=== PATIENT | female | born 1930 | race Two or more races ===

== ENCOUNTER 2017-10-01 20:10 | Inpatient (IN) | payer MEDICARE, MEDICAID ==
[2017-10-02] MEDS ORDERED: ACETAMINOPHEN 650 MG SUPP PR (00:30)
[2017-10-02] MEDS ORDERED: BISACODYL 10 MG SUPP PR (01:00)
[2017-10-02] MEDS ORDERED: NITROGLYCERIN (SL) 0.4 MG TAB SL (01:00)
[2017-10-02] MEDS ORDERED: DIPHENHYDRAMINE 50 MG INJ IV ×2 (01:00→07:00)
[2017-10-02] MEDS ORDERED: ALBUTEROL 0.5% (NEB) 2.5 MG/0.5 ML AMP INH (01:00)
[2017-10-02] MEDS ORDERED: IPRATROPIUM (NEB) 0.5 MG/2.5 ML AMP INH (01:00)
[2017-10-02] MEDS ORDERED: ONDANSETRON 4 MG INJ IV (01:00)
[2017-10-02 01:15] LABS: ADD UMIC YES; UR ASCORBIC ACID NEGATIVE (NEGATIVE); UR BILIRUBIN (Dip) NEGATIVE (NEGATIVE); UR BLOOD (Dip) NEGATIVE (NEGATIVE); UR CLARITY CLEAR (CLEAR); UR COLOR STRAW (YELLOW); UR GLUCOSE (Dip) NEGATIVE (NEGATIVE); UR KETONES (Dip) NEGATIVE (NEGATIVE); UR LEUKOCYTE ESTERASE (Dip) NEGATIVE Leu/ul (NEGATIVE); UR NITRITE (Dip) NEGATIVE (NEGATIVE); UR RBC 0 /HPF (0-5); UR TOTAL PROTEIN (Dip) 2+ mg/dl (NEGATIVE); UR UROBILINOGEN (Dip) NEGATIVE (NEGATIVE); UR WBC 2 /HPF (0-5)
[2017-10-02] MEDS ORDERED: MAGNESIUM SULFATE 2 GM/50 ML 50 ML IVPB (03:00)
[2017-10-02] MEDS ORDERED: MAGNESIUM SULFATE 4 GM/100 ML 100 ML IVPB (03:00)
[2017-10-02] MEDS: PANTOPRAZOLE (EC) 40 MG TAB PO (06:19)
[2017-10-02 08:17] LABS: ADD MAN DIFF? NO
[2017-10-02 08:23] LABS: WHITE BLOOD COUNT 7.2 10^3/ul (4.8-10.8)
[2017-10-02 08:23] LABS: BASOPHILS % 0.4 % (0.0-2.0); EOSINOPHILS # 0.3 10^3/ul (0.0-0.5); EOSINOPHILS % 3.6 % (0.0-7.0); HEMATOCRIT 31.2 % (37.0-47.0); HEMOGLOBIN 9.8 g/dl (12.0-16.0); LYMPHOCYTES # 1.7 10^3/ul (0.8-2.9); LYMPHOCYTES % 23.2 % (15.0-51.0); MEAN CORPUSCULAR HEMOGLOBIN 30.7 pg (29.0-33.0); MEAN CORPUSCULAR HGB CONC 31.4 g/dl (32.0-37.0); MEAN CORPUSCULAR VOLUME 97.8 fl (82.0-101.0); MEAN PLATELET VOLUME 9.4 fl (7.4-10.4); MONOCYTE # 0.6 10^3/ul (0.3-0.9); MONOCYTES % 8.8 % (0.0-11.0); NEUTROPHIL # 4.6 10^3/ul (1.6-7.5); NEUTROPHILS % 63.6 % (39.0-77.0); PLATELET COUNT 267 10^3/UL (140-415); RED BLOOD COUNT 3.19 10^6/ul (4.20-5.40); RED CELL DISTRIBUTION WIDTH 13.8 % (11.5-14.5)
[2017-10-02 08:42] LABS: INR 1.91; PROTIME 22.3 Sec (11.9-14.9); PT RATIO 1.7
[2017-10-02] MEDS ORDERED: FUROSEMIDE 40 MG TAB PO (09:00)
[2017-10-02] MEDS ORDERED: METOLAZONE 5 MG TAB PO (09:00)
[2017-10-02] MEDS ORDERED: COLCHICINE 0.6 MG TAB PO (09:00)
[2017-10-02 09:02] LABS: ALANINE AMINOTRANSFERASE 22 IU/L (13-69); ALBUMIN/GLOBULIN RATIO 1.17; ALKALINE PHOSPHATASE 62 IU/L (42-121); ANION GAP 19 (8-16); ASPARTATE AMINO TRANSFERASE 18 IU/L (15-46); BILIRUBIN,INDIRECT 0.1 mg/dl (0-1.1); BILIRUBIN,TOTAL 0.1 mg/dl (0.2-1.3); BLOOD UREA NITROGEN 110 mg/dl (7-20); CALCIUM 8.2 mg/dl (8.4-10.2); CARBON DIOXIDE 28 mmol/L (21-31); CHLORIDE 102 mmol/L (97-110); CREATININE 2.79 mg/dl (0.44-1.00); GLUCOSE 90 mg/dl (70-220); POTASSIUM 3.7 mmol/L (3.5-5.1); SODIUM 145 mmol/L (135-144); TOTAL PROTEIN 7.4 g/dl (6.1-8.1)
[2017-10-02] MEDS ORDERED: HYDROCORTISONE 1% 28 GM CR TOP (11:30)
[2017-10-02] MEDS ORDERED: DIPHENHYDRAMINE 25 MG CAP PO (11:30)
[2017-10-02] MEDS: DOCUSATE SODIUM 100 MG CAP PO ×2 (12:01→21:28)
[2017-10-02] MEDS: FERROUS GLUCONATE (EC) 325 MG TAB PO (12:01)
[2017-10-02] MEDS: COLCHICINE 0.6 MG TAB PO (12:02)
[2017-10-02] MEDS: NIFEdipine (XL) 30 MG TAB PO (12:04)
[2017-10-02] MEDS: FUROSEMIDE 40 MG TAB PO (12:11)
[2017-10-02] MEDS: DOXAZOSIN 2 MG TAB PO (21:00)
[2017-10-03 05:46] LABS: ADD UMIC YES; UR ASCORBIC ACID NEGATIVE (NEGATIVE); UR BILIRUBIN (Dip) NEGATIVE (NEGATIVE); UR BLOOD (Dip) 1+ mg/dL (NEGATIVE); UR CLARITY CLEAR (CLEAR); UR COLOR STRAW (YELLOW); UR GLUCOSE (Dip) NEGATIVE (NEGATIVE); UR KETONES (Dip) NEGATIVE (NEGATIVE); UR LEUKOCYTE ESTERASE (Dip) NEGATIVE Leu/ul (NEGATIVE); UR NITRITE (Dip) NEGATIVE (NEGATIVE); UR RBC 0 /HPF (0-5); UR TOTAL PROTEIN (Dip) 2+ mg/dl (NEGATIVE); UR UROBILINOGEN (Dip) NEGATIVE (NEGATIVE); UR WBC 1 /HPF (0-5)
[2017-10-03 06:07] LABS: CREATININE,URINE RANDOM 46.49 mg/dl (20-320)
[2017-10-03 06:07] LABS: SODIUM,URINE RANDOM 72 mmol/L (30-90)
[2017-10-03 06:47] LABS: ADD MAN DIFF? NO
[2017-10-03 06:55] LABS: WHITE BLOOD COUNT 7.8 10^3/ul (4.8-10.8)
[2017-10-03 06:55] LABS: BASOPHILS % 0.5 % (0.0-2.0); EOSINOPHILS # 0.3 10^3/ul (0.0-0.5); EOSINOPHILS % 4.1 % (0.0-7.0); HEMATOCRIT 29.5 % (37.0-47.0); HEMOGLOBIN 9.5 g/dl (12.0-16.0); LYMPHOCYTES # 1.7 10^3/ul (0.8-2.9); LYMPHOCYTES % 21.2 % (15.0-51.0); MEAN CORPUSCULAR HEMOGLOBIN 30.9 pg (29.0-33.0); MEAN CORPUSCULAR HGB CONC 32.2 g/dl (32.0-37.0); MEAN CORPUSCULAR VOLUME 96.1 fl (82.0-101.0); MEAN PLATELET VOLUME 9.2 fl (7.4-10.4); MONOCYTE # 0.7 10^3/ul (0.3-0.9); MONOCYTES % 9.1 % (0.0-11.0); NEUTROPHIL # 5.1 10^3/ul (1.6-7.5); NEUTROPHILS % 64.8 % (39.0-77.0); PLATELET COUNT 239 10^3/UL (140-415); RED BLOOD COUNT 3.07 10^6/ul (4.20-5.40); RED CELL DISTRIBUTION WIDTH 13.9 % (11.5-14.5)
[2017-10-03] MEDS: PANTOPRAZOLE (EC) 40 MG TAB PO (06:57)
[2017-10-03 07:17] LABS: ANION GAP 15 (8-16); BLOOD UREA NITROGEN 117 mg/dl (7-20); CALCIUM 7.9 mg/dl (8.4-10.2); CARBON DIOXIDE 27 mmol/L (21-31); CHLORIDE 103 mmol/L (97-110); CREATININE 2.73 mg/dl (0.44-1.00); GLUCOSE 92 mg/dl (70-220); MAGNESIUM 2.2 mg/dl (1.7-2.5); PHOSPHORUS 6.2 mg/dl (2.5-4.9); POTASSIUM 3.9 mmol/L (3.5-5.1); SODIUM 141 mmol/L (135-144)
[2017-10-03 07:24] LABS: INR 2.14; PROTIME 24.4 Sec (11.9-14.9); PT RATIO 1.9
[2017-10-03] MEDS: DOCUSATE SODIUM 100 MG CAP PO ×2 (09:00→20:31)
[2017-10-03] MEDS: NIFEdipine (XL) 30 MG TAB PO (09:01)
[2017-10-03] MEDS: COLCHICINE 0.6 MG TAB PO (09:01)
[2017-10-03] MEDS: FERROUS GLUCONATE (EC) 325 MG TAB PO (09:01)
[2017-10-03] MEDS: WARFARIN 2 MG TAB PO (18:07)
[2017-10-03] MEDS: DOXAZOSIN 2 MG TAB PO (20:31)
[2017-10-04] MEDS: PANTOPRAZOLE (EC) 40 MG TAB PO (06:23)
[2017-10-04 06:34] LABS: ADD MAN DIFF? NO
[2017-10-04 06:36] LABS: BASOPHILS % 0.4 % (0.0-2.0); EOSINOPHILS # 0.2 10^3/ul (0.0-0.5); EOSINOPHILS % 3.5 % (0.0-7.0); HEMATOCRIT 30.1 % (37.0-47.0); HEMOGLOBIN 9.8 g/dl (12.0-16.0); LYMPHOCYTES # 1.4 10^3/ul (0.8-2.9); LYMPHOCYTES % 20.4 % (15.0-51.0); MEAN CORPUSCULAR HEMOGLOBIN 31.3 pg (29.0-33.0); MEAN CORPUSCULAR HGB CONC 32.6 g/dl (32.0-37.0); MEAN CORPUSCULAR VOLUME 96.2 fl (82.0-101.0); MEAN PLATELET VOLUME 8.9 fl (7.4-10.4); MONOCYTE # 0.7 10^3/ul (0.3-0.9); MONOCYTES % 9.6 % (0.0-11.0); NEUTROPHIL # 4.4 10^3/ul (1.6-7.5); NEUTROPHILS % 65.7 % (39.0-77.0); PLATELET COUNT 233 10^3/UL (140-415); RED BLOOD COUNT 3.13 10^6/ul (4.20-5.40); RED CELL DISTRIBUTION WIDTH 13.9 % (11.5-14.5)
[2017-10-04 06:36] LABS: WHITE BLOOD COUNT 6.8 10^3/ul (4.8-10.8)
[2017-10-04 06:58] LABS: ANION GAP 19 (8-16); BLOOD UREA NITROGEN 119 mg/dl (7-20); CARBON DIOXIDE 26 mmol/L (21-31); CHLORIDE 101 mmol/L (97-110); CREATININE 2.88 mg/dl (0.44-1.00); GLUCOSE 97 mg/dl (70-220); MAGNESIUM 2.2 mg/dl (1.7-2.5); PHOSPHORUS 7.1 mg/dl (2.5-4.9); POTASSIUM 4.1 mmol/L (3.5-5.1); SODIUM 142 mmol/L (135-144)
[2017-10-04 07:11] LABS: INR 2.03; PROTIME 23.4 Sec (11.9-14.9); PT RATIO 1.8
[2017-10-04] MEDS: COLCHICINE 0.6 MG TAB PO (08:46)
[2017-10-04] MEDS: FERROUS GLUCONATE (EC) 325 MG TAB PO (08:47)
[2017-10-04] MEDS: NIFEdipine (XL) 30 MG TAB PO (08:47)
[2017-10-04] MEDS: DOCUSATE SODIUM 100 MG CAP PO ×2 (08:48→20:33)
[2017-10-04] MEDS: MULTIVIT/CA CARB/B CMPLX/FA TAB PO (09:00)
[2017-10-04] MEDS: SOD CHLORIDE 0.9% 1,000 ML IV ×2 (11:29→22:20)
[2017-10-04] MEDS: SEVELAMER 400 MG TAB PO ×2 (12:40→18:28)
[2017-10-04 16:31] LABS: CREATININE, RANDOM URINE 56 mg/dL (20-320); MICROALBUMIN 59.4 mg/dL; MICROALBUMIN/CREATININE RATIO 1061 (<30)
[2017-10-04] MEDS: WARFARIN 2 MG TAB PO (18:28)
[2017-10-04] MEDS: DOXAZOSIN 2 MG TAB PO (20:33)
[2017-10-05] MEDS: PANTOPRAZOLE (EC) 40 MG TAB PO (05:53)
[2017-10-05] MEDS: SOD CHLORIDE 0.9% 1,000 ML IV (05:54)
[2017-10-05 06:37] LABS: ADD MAN DIFF? NO
[2017-10-05 06:41] LABS: BASOPHILS % 0.5 % (0.0-2.0); EOSINOPHILS # 0.2 10^3/ul (0.0-0.5); HEMATOCRIT 28.8 % (37.0-47.0); HEMOGLOBIN 9.2 g/dl (12.0-16.0); LYMPHOCYTES # 1.4 10^3/ul (0.8-2.9); LYMPHOCYTES % 23.3 % (15.0-51.0); MEAN CORPUSCULAR HEMOGLOBIN 31.1 pg (29.0-33.0); MEAN CORPUSCULAR HGB CONC 31.9 g/dl (32.0-37.0); MEAN CORPUSCULAR VOLUME 97.3 fl (82.0-101.0); MEAN PLATELET VOLUME 9.2 fl (7.4-10.4); MONOCYTE # 0.6 10^3/ul (0.3-0.9); MONOCYTES % 9.5 % (0.0-11.0); NEUTROPHIL # 3.7 10^3/ul (1.6-7.5); NEUTROPHILS % 62.2 % (39.0-77.0); PLATELET COUNT 227 10^3/UL (140-415); RED BLOOD COUNT 2.96 10^6/ul (4.20-5.40); RED CELL DISTRIBUTION WIDTH 13.9 % (11.5-14.5)
[2017-10-05 07:01] LABS: INR 1.89; PROTIME 22.1 Sec (11.9-14.9); PT RATIO 1.7
[2017-10-05 07:14] LABS: ANION GAP 20 (8-16); BLOOD UREA NITROGEN 112 mg/dl (7-20); CALCIUM 7.3 mg/dl (8.4-10.2); CARBON DIOXIDE 23 mmol/L (21-31); CHLORIDE 105 mmol/L (97-110); GLUCOSE 91 mg/dl (70-220); MAGNESIUM 2.2 mg/dl (1.7-2.5); PHOSPHORUS 6.5 mg/dl (2.5-4.9); POTASSIUM 3.7 mmol/L (3.5-5.1); SODIUM 144 mmol/L (135-144)
[2017-10-05] MEDS: MULTIVIT/CA CARB/B CMPLX/FA TAB PO (08:43)
[2017-10-05] MEDS: COLCHICINE 0.6 MG TAB PO (08:43)
[2017-10-05] MEDS: FERROUS GLUCONATE (EC) 325 MG TAB PO (08:43)
[2017-10-05] MEDS: DOCUSATE SODIUM 100 MG CAP PO ×2 (08:43→21:27)
[2017-10-05] MEDS: NIFEdipine (XL) 30 MG TAB PO (08:43)
[2017-10-05] MEDS: SEVELAMER 400 MG TAB PO ×3 (08:44→17:46)
[2017-10-05] MEDS: NYSTATIN 30 GM POWDER BTL TOP ×2 (15:56→21:28)
[2017-10-05] MEDS: WARFARIN 3 MG TAB PO (17:46)
[2017-10-05] MEDS: DOXAZOSIN 2 MG TAB PO (21:28)
[2017-10-06] MEDS: PANTOPRAZOLE (EC) 40 MG TAB PO (06:48)
[2017-10-06] MEDS: SEVELAMER 400 MG TAB PO ×3 (08:04→17:35)
[2017-10-06] MEDS: NIFEdipine (XL) 30 MG TAB PO (09:00)
[2017-10-06] MEDS: FERROUS GLUCONATE (EC) 325 MG TAB PO (09:07)
[2017-10-06] MEDS: MULTIVIT/CA CARB/B CMPLX/FA TAB PO (09:07)
[2017-10-06] MEDS: NYSTATIN 30 GM POWDER BTL TOP ×2 (09:07→20:44)
[2017-10-06] MEDS: DOCUSATE SODIUM 100 MG CAP PO ×2 (09:07→20:43)
[2017-10-06 09:08] LABS: ADD MAN DIFF? NO
[2017-10-06 09:26] LABS: BASOPHILS % 0.4 % (0.0-2.0); EOSINOPHILS # 0.3 10^3/ul (0.0-0.5); EOSINOPHILS % 4.5 % (0.0-7.0); HEMATOCRIT 29.2 % (37.0-47.0); HEMOGLOBIN 9.2 g/dl (12.0-16.0); LYMPHOCYTES # 1.2 10^3/ul (0.8-2.9); LYMPHOCYTES % 18.1 % (15.0-51.0); MEAN CORPUSCULAR HEMOGLOBIN 30.6 pg (29.0-33.0); MEAN CORPUSCULAR HGB CONC 31.5 g/dl (32.0-37.0); MEAN PLATELET VOLUME 9.9 fl (7.4-10.4); MONOCYTE # 0.6 10^3/ul (0.3-0.9); MONOCYTES % 9.6 % (0.0-11.0); NEUTROPHIL # 4.5 10^3/ul (1.6-7.5); PLATELET COUNT 239 10^3/UL (140-415); RED BLOOD COUNT 3.01 10^6/ul (4.20-5.40); RED CELL DISTRIBUTION WIDTH 14.2 % (11.5-14.5)
[2017-10-06 09:26] LABS: WHITE BLOOD COUNT 6.7 10^3/ul (4.8-10.8)
[2017-10-06 09:27] LABS: ANION GAP 17 (8-16); BLOOD UREA NITROGEN 100 mg/dl (7-20); CALCIUM 7.6 mg/dl (8.4-10.2); CARBON DIOXIDE 22 mmol/L (21-31); CHLORIDE 109 mmol/L (97-110); CREATININE 2.83 mg/dl (0.44-1.00); GLUCOSE 96 mg/dl (70-220); MAGNESIUM 2.2 mg/dl (1.7-2.5); PHOSPHORUS 5.4 mg/dl (2.5-4.9); POTASSIUM 3.7 mmol/L (3.5-5.1); SODIUM 144 mmol/L (135-144)
[2017-10-06 09:32] LABS: INR 1.78; PROTIME 21.1 Sec (11.9-14.9); PT RATIO 1.6
[2017-10-06] MEDS: WARFARIN 3 MG TAB PO (17:35)
[2017-10-06] MEDS: DOXAZOSIN 2 MG TAB PO (20:43)
[2017-10-07] MEDS: PANTOPRAZOLE (EC) 40 MG TAB PO (06:58)
[2017-10-07] MEDS: MULTIVIT/CA CARB/B CMPLX/FA TAB PO (09:39)
[2017-10-07] MEDS: FERROUS GLUCONATE (EC) 325 MG TAB PO (09:39)
[2017-10-07] MEDS: DOCUSATE SODIUM 100 MG CAP PO ×2 (09:39→20:41)
[2017-10-07] MEDS: NIFEdipine (XL) 30 MG TAB PO (09:40)
[2017-10-07] MEDS: SEVELAMER 400 MG TAB PO ×3 (09:40→18:08)
[2017-10-07] MEDS: NYSTATIN 30 GM POWDER BTL TOP ×2 (09:41→20:42)
[2017-10-07] MEDS: WARFARIN 3 MG TAB PO (18:08)
[2017-10-07] MEDS: DOXAZOSIN 2 MG TAB PO (20:41)
[2017-10-08] MEDS: PANTOPRAZOLE (EC) 40 MG TAB PO (05:55)
[2017-10-08 07:26] LABS: INR 1.81; PROTIME 21.4 Sec (11.9-14.9); PT RATIO 1.7
[2017-10-08] MEDS: SEVELAMER 400 MG TAB PO ×3 (08:49→18:02)
[2017-10-08] MEDS: DOCUSATE SODIUM 100 MG CAP PO ×2 (08:50→20:44)
[2017-10-08] MEDS: MULTIVIT/CA CARB/B CMPLX/FA TAB PO (08:50)
[2017-10-08] MEDS: NIFEdipine (XL) 30 MG TAB PO (08:50)
[2017-10-08] MEDS: FERROUS GLUCONATE (EC) 325 MG TAB PO (08:51)
[2017-10-08] MEDS: NYSTATIN 30 GM POWDER BTL TOP ×2 (08:52→20:48)
[2017-10-08] MEDS: ACETAMINOPHEN 325 MG TAB PO (15:31)
[2017-10-08] MEDS ORDERED: WARFARIN 3 MG TAB PO (17:00)
[2017-10-08] MEDS: WARFARIN 2 MG TAB PO (18:02)
[2017-10-08] MEDS: DOXAZOSIN 2 MG TAB PO (20:45)
[2017-10-09] MEDS: PANTOPRAZOLE (EC) 40 MG TAB PO (05:58)
[2017-10-09 06:10] LABS: ADD MAN DIFF? NO
[2017-10-09 06:20] LABS: WHITE BLOOD COUNT 6.6 10^3/ul (4.8-10.8)
[2017-10-09 06:20] LABS: BASOPHILS % 0.6 % (0.0-2.0); EOSINOPHILS # 0.3 10^3/ul (0.0-0.5); EOSINOPHILS % 4.8 % (0.0-7.0); HEMATOCRIT 29.7 % (37.0-47.0); HEMOGLOBIN 9.2 g/dl (12.0-16.0); LYMPHOCYTES # 1.3 10^3/ul (0.8-2.9); LYMPHOCYTES % 19.4 % (15.0-51.0); MEAN CORPUSCULAR HEMOGLOBIN 30.6 pg (29.0-33.0); MEAN CORPUSCULAR VOLUME 98.7 fl (82.0-101.0); MEAN PLATELET VOLUME 9.7 fl (7.4-10.4); MONOCYTE # 0.5 10^3/ul (0.3-0.9); MONOCYTES % 7.6 % (0.0-11.0); NEUTROPHIL # 4.5 10^3/ul (1.6-7.5); NEUTROPHILS % 67.4 % (39.0-77.0); PLATELET COUNT 199 10^3/UL (140-415); RED BLOOD COUNT 3.01 10^6/ul (4.20-5.40); RED CELL DISTRIBUTION WIDTH 14.3 % (11.5-14.5)
[2017-10-09 06:33] LABS: INR 1.73; PROTIME 20.6 Sec (11.9-14.9); PT RATIO 1.6
[2017-10-09 06:50] LABS: ANION GAP 13 (8-16); BLOOD UREA NITROGEN 88 mg/dl (7-20); CALCIUM 8.1 mg/dl (8.4-10.2); CARBON DIOXIDE 22 mmol/L (21-31); CHLORIDE 114 mmol/L (97-110); CREATININE 2.44 mg/dl (0.44-1.00); GLUCOSE 101 mg/dl (70-220); MAGNESIUM 2.3 mg/dl (1.7-2.5); PHOSPHORUS 5.2 mg/dl (2.5-4.9); POTASSIUM 4.6 mmol/L (3.5-5.1); SODIUM 144 mmol/L (135-144)
[2017-10-09] MEDS: MULTIVIT/CA CARB/B CMPLX/FA TAB PO (08:40)
[2017-10-09] MEDS: DOCUSATE SODIUM 100 MG CAP PO ×2 (08:40→21:08)
[2017-10-09] MEDS: FERROUS GLUCONATE (EC) 325 MG TAB PO (08:40)
[2017-10-09] MEDS: ACETAMINOPHEN 325 MG TAB PO (08:40)
[2017-10-09] MEDS: SEVELAMER 400 MG TAB PO ×3 (08:40→17:14)
[2017-10-09] MEDS: COLCHICINE 0.6 MG TAB PO (08:41)
[2017-10-09] MEDS: NIFEdipine (XL) 30 MG TAB PO (08:42)
[2017-10-09] MEDS: NYSTATIN 30 GM POWDER BTL TOP ×2 (08:43→21:09)
[2017-10-09] MEDS: WARFARIN 2 MG TAB PO (17:07)
[2017-10-09] MEDS: DOXAZOSIN 2 MG TAB PO (21:09)
[2017-10-10] MEDS: PANTOPRAZOLE (EC) 40 MG TAB PO (06:21)
[2017-10-10 07:01] LABS: INR 2.27; PROTIME 25.6 Sec (11.9-14.9)
[2017-10-10 07:06] LABS: ANION GAP 15 (8-16); BLOOD UREA NITROGEN 81 mg/dl (7-20); CALCIUM 7.8 mg/dl (8.4-10.2); CARBON DIOXIDE 21 mmol/L (21-31); CHLORIDE 112 mmol/L (97-110); CREATININE 2.94 mg/dl (0.44-1.00); GLUCOSE 95 mg/dl (70-220); MAGNESIUM 2.2 mg/dl (1.7-2.5); PHOSPHORUS 5.5 mg/dl (2.5-4.9); POTASSIUM 4.8 mmol/L (3.5-5.1); SODIUM 143 mmol/L (135-144)
[2017-10-10] MEDS: DOCUSATE SODIUM 100 MG CAP PO ×2 (08:27→20:09)
[2017-10-10] MEDS: MULTIVIT/CA CARB/B CMPLX/FA TAB PO (08:27)
[2017-10-10] MEDS: FERROUS GLUCONATE (EC) 325 MG TAB PO (08:27)
[2017-10-10] MEDS: SEVELAMER 400 MG TAB PO ×3 (08:27→17:34)
[2017-10-10] MEDS: NIFEdipine (XL) 30 MG TAB PO ×2 (08:28→20:12)
[2017-10-10] MEDS: NYSTATIN 30 GM POWDER BTL TOP ×2 (08:30→20:15)
[2017-10-10] MEDS: DICLOFENAC SODIUM 1% GEL 100 GM TUBE TP ×4 (09:48→20:14)
[2017-10-10] MEDS: LIDOCAINE 5% PATCH TD (09:48)
[2017-10-10] MEDS: WARFARIN 5 MG TAB PO (17:34)
[2017-10-10] MEDS: DOXAZOSIN 2 MG TAB PO (20:12)
[2017-10-11] MEDS: PANTOPRAZOLE (EC) 40 MG TAB PO (06:36)
[2017-10-11 07:30] LABS: ADD MAN DIFF? NO
[2017-10-11 07:33] LABS: WHITE BLOOD COUNT 6.5 10^3/ul (4.8-10.8)
[2017-10-11 07:33] LABS: BASOPHILS % 0.5 % (0.0-2.0); EOSINOPHILS # 0.3 10^3/ul (0.0-0.5); EOSINOPHILS % 4.5 % (0.0-7.0); HEMATOCRIT 28.4 % (37.0-47.0); LYMPHOCYTES # 1.3 10^3/ul (0.8-2.9); LYMPHOCYTES % 19.8 % (15.0-51.0); MEAN CORPUSCULAR HEMOGLOBIN 30.8 pg (29.0-33.0); MEAN CORPUSCULAR HGB CONC 31.7 g/dl (32.0-37.0); MEAN CORPUSCULAR VOLUME 97.3 fl (82.0-101.0); MEAN PLATELET VOLUME 10.1 fl (7.4-10.4); MONOCYTE # 0.5 10^3/ul (0.3-0.9); NEUTROPHIL # 4.4 10^3/ul (1.6-7.5); PLATELET COUNT 179 10^3/UL (140-415); RED BLOOD COUNT 2.92 10^6/ul (4.20-5.40); RED CELL DISTRIBUTION WIDTH 14.4 % (11.5-14.5)
[2017-10-11 07:58] LABS: ANION GAP 14 (8-16); BLOOD UREA NITROGEN 77 mg/dl (7-20); CALCIUM 8.4 mg/dl (8.4-10.2); CARBON DIOXIDE 22 mmol/L (21-31); CHLORIDE 113 mmol/L (97-110); CREATININE 2.63 mg/dl (0.44-1.00); GLUCOSE 89 mg/dl (70-220); MAGNESIUM 2.2 mg/dl (1.7-2.5); PHOSPHORUS 4.6 mg/dl (2.5-4.9); POTASSIUM 4.7 mmol/L (3.5-5.1); SODIUM 144 mmol/L (135-144)
[2017-10-11 08:06] LABS: INR 2.22; PROTIME 25.2 Sec (11.9-14.9)
[2017-10-11] MEDS: SEVELAMER 400 MG TAB PO ×3 (09:43→18:23)
[2017-10-11] MEDS: DOCUSATE SODIUM 100 MG CAP PO ×2 (09:43→20:16)
[2017-10-11] MEDS: MULTIVIT/CA CARB/B CMPLX/FA TAB PO (09:44)
[2017-10-11] MEDS: NIFEdipine (XL) 30 MG TAB PO ×2 (09:44→20:16)
[2017-10-11] MEDS: FERROUS GLUCONATE (EC) 325 MG TAB PO (09:44)
[2017-10-11] MEDS: DICLOFENAC SODIUM 1% GEL 100 GM TUBE TP ×4 (09:45→20:16)
[2017-10-11] MEDS: LIDOCAINE 5% PATCH TD (09:45)
[2017-10-11] MEDS: NYSTATIN 30 GM POWDER BTL TOP ×2 (09:46→20:17)
[2017-10-11] MEDS: ACETAMINOPHEN 325 MG TAB PO (15:31)
[2017-10-11] MEDS: WARFARIN 5 MG TAB PO (18:23)
[2017-10-11] MEDS: DOXAZOSIN 2 MG TAB PO (20:14)
[2017-10-11] MEDS: ZOLPIDEM 5 MG TAB PO (20:15)
[2017-10-12] MEDS: PANTOPRAZOLE (EC) 40 MG TAB PO (07:24)
[2017-10-12] MEDS: DICLOFENAC SODIUM 1% GEL 100 GM TUBE TP ×4 (08:31→20:50)
[2017-10-12] MEDS: NYSTATIN 30 GM POWDER BTL TOP ×2 (08:31→20:56)
[2017-10-12] MEDS: SEVELAMER 400 MG TAB PO ×3 (08:31→17:20)
[2017-10-12] MEDS: LIDOCAINE 5% PATCH TD (08:32)
[2017-10-12] MEDS: NIFEdipine (XL) 30 MG TAB PO ×2 (08:33→20:49)
[2017-10-12] MEDS: MULTIVIT/CA CARB/B CMPLX/FA TAB PO (08:33)
[2017-10-12] MEDS: DOCUSATE SODIUM 100 MG CAP PO ×2 (08:33→20:48)
[2017-10-12] MEDS: ACETAMINOPHEN 325 MG TAB PO ×2 (08:33→14:07)
[2017-10-12] MEDS: FERROUS GLUCONATE (EC) 325 MG TAB PO (08:34)
[2017-10-12 11:22] LABS: PROTIME 22.2 Sec (11.9-14.9); PT RATIO 1.7
[2017-10-12] MEDS: WARFARIN 5 MG TAB PO (17:20)
[2017-10-12] MEDS: ZOLPIDEM 5 MG TAB PO (20:48)
[2017-10-12] MEDS: DOXAZOSIN 2 MG TAB PO (20:49)
[2017-10-13 07:02] LABS: ADD MAN DIFF? NO
[2017-10-13 07:14] LABS: BASOPHILS % 0.5 % (0.0-2.0); EOSINOPHILS # 0.2 10^3/ul (0.0-0.5); EOSINOPHILS % 4.1 % (0.0-7.0); HEMATOCRIT 29.2 % (37.0-47.0); LYMPHOCYTES # 1.2 10^3/ul (0.8-2.9); LYMPHOCYTES % 21.1 % (15.0-51.0); MEAN CORPUSCULAR HEMOGLOBIN 30.6 pg (29.0-33.0); MEAN CORPUSCULAR HGB CONC 30.8 g/dl (32.0-37.0); MEAN CORPUSCULAR VOLUME 99.3 fl (82.0-101.0); MONOCYTE # 0.5 10^3/ul (0.3-0.9); MONOCYTES % 8.7 % (0.0-11.0); NEUTROPHIL # 3.7 10^3/ul (1.6-7.5); NEUTROPHILS % 65.2 % (39.0-77.0); PLATELET COUNT 176 10^3/UL (140-415); RED BLOOD COUNT 2.94 10^6/ul (4.20-5.40); RED CELL DISTRIBUTION WIDTH 14.3 % (11.5-14.5)
[2017-10-13 07:14] LABS: WHITE BLOOD COUNT 5.6 10^3/ul (4.8-10.8)
[2017-10-13 07:43] LABS: PROTIME 22.2 Sec (11.9-14.9); PT RATIO 1.7
[2017-10-13 07:53] LABS: ANION GAP 15 (8-16); BLOOD UREA NITROGEN 77 mg/dl (7-20); CALCIUM 8.5 mg/dl (8.4-10.2); CARBON DIOXIDE 23 mmol/L (21-31); CHLORIDE 113 mmol/L (97-110); CREATININE 2.52 mg/dl (0.44-1.00); GLUCOSE 93 mg/dl (70-220); MAGNESIUM 2.3 mg/dl (1.7-2.5); PHOSPHORUS 5.1 mg/dl (2.5-4.9); POTASSIUM 5.3 mmol/L (3.5-5.1); SODIUM 146 mmol/L (135-144)
[2017-10-13] MEDS: MULTIVIT/CA CARB/B CMPLX/FA TAB PO (08:43)
[2017-10-13] MEDS: DOCUSATE SODIUM 100 MG CAP PO ×2 (08:44→21:28)
[2017-10-13] MEDS: NIFEdipine (XL) 30 MG TAB PO ×2 (08:44→21:29)
[2017-10-13] MEDS: PANTOPRAZOLE (EC) 40 MG TAB PO (08:47)
[2017-10-13] MEDS: FERROUS GLUCONATE (EC) 325 MG TAB PO (08:47)
[2017-10-13] MEDS: SEVELAMER 400 MG TAB PO ×3 (08:47→18:02)
[2017-10-13] MEDS: LIDOCAINE 5% PATCH TD (08:51)
[2017-10-13] MEDS: DICLOFENAC SODIUM 1% GEL 100 GM TUBE TP ×4 (09:00→21:35)
[2017-10-13] MEDS: NYSTATIN 30 GM POWDER BTL TOP ×2 (09:00→21:30)
[2017-10-13] MEDS: NA POLYST SULFON 15 GM/60 ML BTL PO (12:52)
[2017-10-13] MEDS: HYDROCHLOROTHIAZIDE 12.5 MG CAP PO (12:53)
[2017-10-13] MEDS: WARFARIN 5 MG TAB PO (18:02)
[2017-10-13] MEDS: DOXAZOSIN 2 MG TAB PO (21:28)
[2017-10-14] MEDS: PANTOPRAZOLE (EC) 40 MG TAB PO (06:12)
[2017-10-14 07:27] LABS: ADD MAN DIFF? NO
[2017-10-14 07:30] LABS: WHITE BLOOD COUNT 6.4 10^3/ul (4.8-10.8)
[2017-10-14 07:30] LABS: BASOPHILS % 0.5 % (0.0-2.0); EOSINOPHILS # 0.2 10^3/ul (0.0-0.5); EOSINOPHILS % 3.5 % (0.0-7.0); HEMATOCRIT 27.9 % (37.0-47.0); HEMOGLOBIN 8.7 g/dl (12.0-16.0); LYMPHOCYTES # 1.5 10^3/ul (0.8-2.9); LYMPHOCYTES % 23.9 % (15.0-51.0); MEAN CORPUSCULAR HEMOGLOBIN 31.1 pg (29.0-33.0); MEAN CORPUSCULAR HGB CONC 31.2 g/dl (32.0-37.0); MEAN CORPUSCULAR VOLUME 99.6 fl (82.0-101.0); MEAN PLATELET VOLUME 10.2 fl (7.4-10.4); MONOCYTE # 0.5 10^3/ul (0.3-0.9); MONOCYTES % 7.8 % (0.0-11.0); NEUTROPHIL # 4.1 10^3/ul (1.6-7.5); PLATELET COUNT 170 10^3/UL (140-415); RED CELL DISTRIBUTION WIDTH 14.3 % (11.5-14.5)
[2017-10-14 08:08] LABS: PHOSPHORUS 4.6 mg/dl (2.5-4.9)
[2017-10-14 08:08] LABS: MAGNESIUM 2.2 mg/dl (1.7-2.5)
[2017-10-14 08:13] LABS: ALANINE AMINOTRANSFERASE 24 IU/L (13-69); ALBUMIN 3.2 g/dl (3.3-4.9); ALKALINE PHOSPHATASE 60 IU/L (42-121); ANION GAP 15 (8-16); ASPARTATE AMINO TRANSFERASE 17 IU/L (15-46); BILIRUBIN,INDIRECT 0.1 mg/dl (0-1.1); BILIRUBIN,TOTAL 0.1 mg/dl (0.2-1.3); BLOOD UREA NITROGEN 70 mg/dl (7-20); CALCIUM 8.2 mg/dl (8.4-10.2); CARBON DIOXIDE 23 mmol/L (21-31); CHLORIDE 113 mmol/L (97-110); CREATININE 2.34 mg/dl (0.44-1.00); GLUCOSE 90 mg/dl (70-220); POTASSIUM 4.5 mmol/L (3.5-5.1); SODIUM 146 mmol/L (135-144); TOTAL PROTEIN 6.4 g/dl (6.1-8.1)
[2017-10-14] MEDS: MULTIVIT/CA CARB/B CMPLX/FA TAB PO (08:48)
[2017-10-14] MEDS: DICLOFENAC SODIUM 1% GEL 100 GM TUBE TP ×4 (08:48→20:43)
[2017-10-14] MEDS: SEVELAMER 400 MG TAB PO ×3 (08:48→17:34)
[2017-10-14] MEDS: DOCUSATE SODIUM 100 MG CAP PO ×2 (08:52→20:39)
[2017-10-14] MEDS: FERROUS GLUCONATE (EC) 325 MG TAB PO (08:52)
[2017-10-14] MEDS: HYDROCHLOROTHIAZIDE 12.5 MG CAP PO (08:52)
[2017-10-14] MEDS: NIFEdipine (XL) 30 MG TAB PO ×2 (08:52→20:39)
[2017-10-14] MEDS: NYSTATIN 30 GM POWDER BTL TOP ×2 (08:53→20:43)
[2017-10-14] MEDS: LIDOCAINE 5% PATCH TD (08:57)
[2017-10-14] MEDS: WARFARIN 5 MG TAB PO (17:34)
[2017-10-14] MEDS: DOXAZOSIN 2 MG TAB PO (20:39)
[2017-10-15] MEDS: PANTOPRAZOLE (EC) 40 MG TAB PO (06:25)
[2017-10-15] MEDS: LIDOCAINE 5% PATCH TD (09:00)
[2017-10-15] MEDS: NYSTATIN 30 GM POWDER BTL TOP ×2 (09:00→21:04)
[2017-10-15 09:09] LABS: ADD MAN DIFF? NO
[2017-10-15 09:21] LABS: WHITE BLOOD COUNT 5.8 10^3/ul (4.8-10.8)
[2017-10-15 09:21] LABS: BASOPHILS % 0.5 % (0.0-2.0); EOSINOPHILS # 0.2 10^3/ul (0.0-0.5); EOSINOPHILS % 3.3 % (0.0-7.0); HEMATOCRIT 27.5 % (37.0-47.0); HEMOGLOBIN 8.5 g/dl (12.0-16.0); LYMPHOCYTES # 1.3 10^3/ul (0.8-2.9); LYMPHOCYTES % 22.9 % (15.0-51.0); MEAN CORPUSCULAR HEMOGLOBIN 30.7 pg (29.0-33.0); MEAN CORPUSCULAR HGB CONC 30.9 g/dl (32.0-37.0); MEAN CORPUSCULAR VOLUME 99.3 fl (82.0-101.0); MEAN PLATELET VOLUME 10.3 fl (7.4-10.4); MONOCYTE # 0.5 10^3/ul (0.3-0.9); MONOCYTES % 8.4 % (0.0-11.0); NEUTROPHIL # 3.8 10^3/ul (1.6-7.5); NEUTROPHILS % 64.7 % (39.0-77.0); PLATELET COUNT 165 10^3/UL (140-415); RED BLOOD COUNT 2.77 10^6/ul (4.20-5.40); RED CELL DISTRIBUTION WIDTH 14.4 % (11.5-14.5)
[2017-10-15 09:36] LABS: PHOSPHORUS 4.6 mg/dl (2.5-4.9)
[2017-10-15 09:40] LABS: INR 2.11; PROTIME 24.2 Sec (11.9-14.9); PT RATIO 1.9
[2017-10-15] MEDS: DOCUSATE SODIUM 100 MG CAP PO ×2 (09:40→20:18)
[2017-10-15] MEDS: MULTIVIT/CA CARB/B CMPLX/FA TAB PO (09:40)
[2017-10-15] MEDS: SEVELAMER 400 MG TAB PO ×3 (09:40→17:56)
[2017-10-15] MEDS: FERROUS GLUCONATE (EC) 325 MG TAB PO (09:40)
[2017-10-15] MEDS: HYDROCHLOROTHIAZIDE 12.5 MG CAP PO (09:41)
[2017-10-15 09:42] LABS: ALANINE AMINOTRANSFERASE 22 IU/L (13-69); ALBUMIN 3.4 g/dl (3.3-4.9); ALBUMIN/GLOBULIN RATIO 1.06; ALKALINE PHOSPHATASE 62 IU/L (42-121); ANION GAP 16 (8-16); ASPARTATE AMINO TRANSFERASE 16 IU/L (15-46); BILIRUBIN,INDIRECT 0.3 mg/dl (0-1.1); BILIRUBIN,TOTAL 0.3 mg/dl (0.2-1.3); BLOOD UREA NITROGEN 66 mg/dl (7-20); CALCIUM 8.1 mg/dl (8.4-10.2); CARBON DIOXIDE 24 mmol/L (21-31); CHLORIDE 114 mmol/L (97-110); CREATININE 2.28 mg/dl (0.44-1.00); GLUCOSE 83 mg/dl (70-220); POTASSIUM 4.6 mmol/L (3.5-5.1); SODIUM 149 mmol/L (135-144); TOTAL PROTEIN 6.6 g/dl (6.1-8.1)
[2017-10-15] MEDS: NIFEdipine (XL) 30 MG TAB PO ×2 (09:43→20:19)
[2017-10-15 09:45] LABS: IRON 74 ug/dl (35-150)
[2017-10-15 09:46] LABS: MAGNESIUM 2.1 mg/dl (1.7-2.5)
[2017-10-15 09:57] LABS: % IRON SATURATION 35 % SAT (22-52); TOTAL IRON BINDING CAPACITY 209 ug/dl (241-421)
[2017-10-15] MEDS: DICLOFENAC SODIUM 1% GEL 100 GM TUBE TP ×4 (13:00→20:20)
[2017-10-15] MEDS: WARFARIN 5 MG TAB PO (17:58)
[2017-10-15] MEDS: DOXAZOSIN 2 MG TAB PO (20:19)
[2017-10-15] MEDS: ZOLPIDEM 5 MG TAB PO (21:04)
[2017-10-16] MEDS: PANTOPRAZOLE (EC) 40 MG TAB PO (06:15)
[2017-10-16] MEDS ORDERED: MAGNESIUM HYDROXIDE 30ML CUP PO (07:00)
[2017-10-16] MEDS ORDERED: LACTULOSE 30ML CUP PO (07:00)
[2017-10-16 08:14] LABS: INR 1.81; PROTIME 21.4 Sec (11.9-14.9); PT RATIO 1.7
[2017-10-16] MEDS: LIDOCAINE 5% PATCH TD (08:27)
[2017-10-16] MEDS: DICLOFENAC SODIUM 1% GEL 100 GM TUBE TP ×4 (08:27→21:07)
[2017-10-16] MEDS: SEVELAMER 400 MG TAB PO ×3 (08:27→17:32)
[2017-10-16] MEDS: HYDROCHLOROTHIAZIDE 12.5 MG CAP PO (08:28)
[2017-10-16] MEDS: MULTIVIT/CA CARB/B CMPLX/FA TAB PO (08:28)
[2017-10-16] MEDS: NIFEdipine (XL) 30 MG TAB PO ×2 (08:28→21:06)
[2017-10-16] MEDS: FERROUS GLUCONATE (EC) 325 MG TAB PO (08:28)
[2017-10-16] MEDS: DOCUSATE SODIUM 100 MG CAP PO ×3 (08:30→21:05)
[2017-10-16] MEDS: NYSTATIN 30 GM POWDER BTL TOP ×2 (08:43→21:00)
[2017-10-16] MEDS: ACETAMINOPHEN 325 MG TAB PO (09:12)
[2017-10-16] MEDS: EPOETIN 10000 UNITS/1 ML INJ (ESRD) SC (09:33)
[2017-10-16 09:58] LABS: OCCULT BLOOD STOOL NEGATIVE (NEGATIVE)
[2017-10-16] MEDS: WARFARIN 5 MG TAB PO (17:32)
[2017-10-16] MEDS: ZOLPIDEM 5 MG TAB PO (21:06)
[2017-10-16] MEDS: DOXAZOSIN 2 MG TAB PO (21:06)
[2017-10-17] MEDS: PANTOPRAZOLE (EC) 40 MG TAB PO (06:16)
[2017-10-17 07:32] LABS: ANION GAP 17 (8-16); BLOOD UREA NITROGEN 66 mg/dl (7-20); CALCIUM 7.8 mg/dl (8.4-10.2); CARBON DIOXIDE 19 mmol/L (21-31); CHLORIDE 111 mmol/L (97-110); CREATININE 2.27 mg/dl (0.44-1.00); GLUCOSE 89 mg/dl (70-220); POTASSIUM 4.7 mmol/L (3.5-5.1); SODIUM 142 mmol/L (135-144)
[2017-10-17 07:33] LABS: INR 2.38; PROTIME 26.6 Sec (11.9-14.9); PT RATIO 2.1
[2017-10-17] MEDS: SEVELAMER 400 MG TAB PO ×3 (08:35→17:33)
[2017-10-17] MEDS: DOCUSATE SODIUM 100 MG CAP PO ×3 (09:00→20:59)
[2017-10-17] MEDS: LIDOCAINE 5% PATCH TD (09:40)
[2017-10-17] MEDS: MULTIVIT/CA CARB/B CMPLX/FA TAB PO (09:40)
[2017-10-17] MEDS: HYDROCHLOROTHIAZIDE 12.5 MG CAP PO (09:40)
[2017-10-17] MEDS: ACETAMINOPHEN 325 MG TAB PO (09:40)
[2017-10-17] MEDS: FERROUS GLUCONATE (EC) 325 MG TAB PO (09:41)
[2017-10-17] MEDS: NIFEdipine (XL) 30 MG TAB PO ×2 (09:41→20:59)
[2017-10-17] MEDS: NYSTATIN 30 GM POWDER BTL TOP ×2 (09:42→21:00)
[2017-10-17] MEDS: DICLOFENAC SODIUM 1% GEL 100 GM TUBE TP ×4 (09:42→21:00)
[2017-10-17] MEDS: WARFARIN 5 MG TAB PO (17:33)
[2017-10-17] MEDS: DOXAZOSIN 2 MG TAB PO (21:00)
[2017-10-17] MEDS: ZOLPIDEM 5 MG TAB PO (23:45)
[2017-10-18] MEDS: PANTOPRAZOLE (EC) 40 MG TAB PO (06:15)
[2017-10-18 06:38] LABS: ADD MAN DIFF? NO
[2017-10-18 06:43] LABS: BASOPHILS % 0.3 % (0.0-2.0); EOSINOPHILS # 0.2 10^3/ul (0.0-0.5); EOSINOPHILS % 3.6 % (0.0-7.0); HEMATOCRIT 27.5 % (37.0-47.0); HEMOGLOBIN 8.6 g/dl (12.0-16.0); LYMPHOCYTES # 1.6 10^3/ul (0.8-2.9); LYMPHOCYTES % 26.5 % (15.0-51.0); MEAN CORPUSCULAR HEMOGLOBIN 30.7 pg (29.0-33.0); MEAN CORPUSCULAR HGB CONC 31.3 g/dl (32.0-37.0); MEAN CORPUSCULAR VOLUME 98.2 fl (82.0-101.0); MONOCYTE # 0.6 10^3/ul (0.3-0.9); MONOCYTES % 9.2 % (0.0-11.0); NEUTROPHIL # 3.6 10^3/ul (1.6-7.5); NEUTROPHILS % 60.1 % (39.0-77.0); PLATELET COUNT 145 10^3/UL (140-415); RED CELL DISTRIBUTION WIDTH 14.1 % (11.5-14.5)
[2017-10-18 06:43] LABS: WHITE BLOOD COUNT 6.1 10^3/ul (4.8-10.8)
[2017-10-18 07:18] LABS: INR 2.45; PROTIME 27.2 Sec (11.9-14.9); PT RATIO 2.1
[2017-10-18] MEDS: DOCUSATE SODIUM 100 MG CAP PO ×3 (09:00→20:43)
[2017-10-18] MEDS: LIDOCAINE 5% PATCH TD (09:00)
[2017-10-18] MEDS: SEVELAMER 400 MG TAB PO ×3 (10:37→19:27)
[2017-10-18] MEDS: HYDROCHLOROTHIAZIDE 12.5 MG CAP PO (10:39)
[2017-10-18] MEDS: MULTIVIT/CA CARB/B CMPLX/FA TAB PO (10:39)
[2017-10-18] MEDS: NIFEdipine (XL) 30 MG TAB PO ×2 (10:39→20:43)
[2017-10-18] MEDS: FERROUS GLUCONATE (EC) 325 MG TAB PO (10:39)
[2017-10-18] MEDS: DICLOFENAC SODIUM 1% GEL 100 GM TUBE TP ×4 (10:41→20:48)
[2017-10-18] MEDS: NYSTATIN 30 GM POWDER BTL TOP ×2 (10:48→20:47)
[2017-10-18] MEDS: WARFARIN 2 MG TAB PO (19:27)
[2017-10-18] MEDS: DOXAZOSIN 2 MG TAB PO (20:43)
[2017-10-18] MEDS: ZOLPIDEM 5 MG TAB PO (20:44)
[2017-10-19] MEDS: PANTOPRAZOLE (EC) 40 MG TAB PO (06:34)
[2017-10-19 07:16] LABS: INR 1.94; PROTIME 22.6 Sec (11.9-14.9); PT RATIO 1.8
[2017-10-19] MEDS: DOCUSATE SODIUM 100 MG CAP PO (08:23)
[2017-10-19] MEDS: FERROUS GLUCONATE (EC) 325 MG TAB PO (08:23)
[2017-10-19] MEDS: HYDROCHLOROTHIAZIDE 12.5 MG CAP PO (08:24)
[2017-10-19] MEDS: SEVELAMER 400 MG TAB PO (08:42)
[2017-10-19] MEDS ORDERED: WARFARIN 5 MG TAB PO (17:00)
== END 2017-10-19 15:30 | disposition home health service (06) | DRG 91 ==
LOC: VRC 10-17 00:06
PROC: F07Z5ZZ Bed Mobility Treatment (ICD-10-PCS; principal; 2017-10-01)
PROC: F08Z2ZZ Grooming/Personal Hygiene Treatment (ICD-10-PCS; 2017-10-01)
DX: G72.9 Myopathy, unspecified (principal); I50.33 Acute on chronic diastolic (congestive) heart failure; G93.40 Encephalopathy, unspecified; I13.0 Hypertensive heart and chronic kidney disease with heart failure and stage 1 through stage 4 chronic kidney disease, or unspecified chronic kidney disease; E87.0 Hyperosmolality and hypernatremia; N18.9 Chronic kidney disease, unspecified; I48.91 Unspecified atrial fibrillation; M19.90 Unspecified osteoarthritis, unspecified site; Z86.73 Personal history of transient ischemic attack (TIA), and cerebral infarction without residual deficits; R53.1 Weakness; D64.9 Anemia, unspecified; M25.552 Pain in left hip; M25.562 Pain in left knee; R41.3 Other amnesia; M10.9 Gout, unspecified; F06.31 Mood disorder due to known physiological condition with depressive features; F06.8 Other specified mental disorders due to known physiological condition; I51.7 Cardiomegaly; I70.0 Atherosclerosis of aorta; R41.82 Altered mental status, unspecified; Z79.01 Long term (current) use of anticoagulants
CPT/HCPCS: 70450; 71045; 72020; 73510; 73560; 73610; 73630-LT; 73700; 80048; 80053; 81001; 81003; 82043; 82270; 82728; 83540; 83735; 84100; 84155; 84300; 85025; 85610; 87081; 87086; 93005; 93306; 97110; 97112; 97116; 97150; 97163; 97167; 97530; 97535; 97542